=== PATIENT | female | born 1985 | race Caucasian/White ===

== ENCOUNTER 2017-05-01 10:41 | Emergency (ER) | payer OTHER ==
[2017-05-01] MEDS ORDERED: Ketorolac Tromethamine 30 MG/ML VIAL ONE (13:00)
== END 2017-05-01 13:22 | disposition home or self-care (01) ==
LOC: ERS 10:41
DX: H65.91 Unspecified nonsuppurative otitis media, right ear (principal); E28.2 Polycystic ovarian syndrome; E03.9 Hypothyroidism, unspecified; E66.9 Obesity, unspecified; F32.9 Major depressive disorder, single episode, unspecified
CPT/HCPCS: 81025; 96372; J1885

== ENCOUNTER 2018-01-13 11:52 | Emergency (ER) | payer MEDICAID, OTHER ==
--- NOTE | 2018-01-13 12:55 | RAD ---
CHEST TWO VIEWS: History: Cough. Comparison: 07-30-16 FINDINGS: Lungs are clear. NO pneumothorax or effusion. Cardiac silhouette and mediastinal contours within norm al limits. IMPRESSION: No acute intrathoracic abnormalities. No significant change. POS: [facility]
== END 2018-01-13 12:51 | disposition home or self-care (01) ==
LOC: ERS 11:52
DX: J20.9 Acute bronchitis, unspecified (principal); J31.0 Chronic rhinitis; E66.9 Obesity, unspecified; E03.9 Hypothyroidism, unspecified; F32.9 Major depressive disorder, single episode, unspecified; Z79.899 Other long term (current) drug therapy
CPT/HCPCS: 71046

== ENCOUNTER 2018-06-29 11:14 | Emergency (ER) | payer MEDICAID ==
[2018-06-29 11:54] LABS: Bilirubin Negative (Negative); Blood, Urine Negative (Negative); Clarity CLEAR (Clear); Glucose, Urine (Dipstick) Negative (Negative); Leukocyte Negative (Negative); Nitrite Negative (Negative); Protein, Urine (Dipstick) Negative (Neg-Trace); Specific Gravity, Urine 1.017 (1.002-1.036)
[2018-06-29 12:14] LABS: #Basophils 0.1 thou/uL (0.0-0.2); #Eosinphils 0.2 thou/uL (0.0-0.7); #Lymphocytes 4.2 thou/uL (1.20-3.40); #Monocytes 0.7 thou/uL (0.11-0.59); #Neutrophils 6.2 thou/uL (1.40-6.50); %Basophils 0.8 % (0.0-1.0); %Eosinophils 2.1 % (0.0-10.0); %Lymphocytes 36.7 % (21.0-51.0); %Monocytes 5.8 % (0.0-10.0); %Neutrophils 54.6 % (42.0-75.0); Hemoglobin 13.1 g/dL (12.0-16.0); Mean Corpuscular HGB CONC 34.2 g/dL (32.0-36.0); Mean Corpuscular Volume 81.9 fL (78.0-98.0); Mean Platelet Volume 7.2 fL (7.4-10.4); Platelet Count 405 thou/uL (130-400); RBC Distribution Width 12.9 % (11.5-14.5); White Blood Cell (WBC) Count 11.3 thou/uL (4.8-10.8)
[2018-06-29 12:17] LABS: Pregnancy Test - Urine (BHCG) Negative (Negative); Pregu Control Background? CLEAR/WHITE (CLR/WHITE); Pregu Control Bar Appear? YES (CONTROL BAR); Specific Gravity 1.017 (1.002-1.036)
[2018-06-29 12:48] LABS: ALT (SGPT) 71 U/L (8-55); AST (SGOT) 79 U/L (5-34); Albumin 3.9 g/dL (3.5-5.0); Alkaline Phosphatase 90 U/L (40-150); Anion Gap 11 mmol/L (10-20); BUN (Urea Nitrogen) 7 mg/dL (7.0-18.7); Bilirubin, Total 0.4 mg/dL (0.2-1.2); Calc. Creatinine Clearance 0 mL/min (70-130); Calcium 9.2 mg/dL (7.8-10.44); Carbon Dioxide 25 mmol/L (22-29); Estimated GFR-MDRD Greater than 90; Globulin 3.2 g/dL (2.4-3.5); Glucose 140 mg/dL (70-105); Protein, Total 7.1 g/dL (6.0-8.3)
[2018-06-29 12:51] LABS: Chloride 105 mmol/L (98-107); Potassium 3.4 mmol/L (3.5-5.1); Sodium 138 mmol/L (136-145)
--- NOTE | 2018-06-29 13:41 | CT ---
CT ABDOMEN AND PELVIS NONCONTRAST: 06/29/2018 HISTORY: Constant left-sided flank pain for five days. COMPARISON: None available. FINDINGS: The lung bases are clear. The liver is enlarged in craniocaudal dimensions, measuring 24.3 cm, with the spleen also enlarged in craniocaudal dimensions, measuring 14.4 cm. There are gas densities within the gallbladder, likely related to gallbladder calculi. There are punctate, approximately 2 mm calculi seen within the superior pole of each kidney, with at least two nonobstructing superior pole renal calculi seen bilaterally. No ureteral calculus is prese nt, and there is no evidence of hydronephrosis. The urinary bladder is incompletely distended but is otherwise grossly normal in appearance. The pancreas, bilateral adrenal glands, and uterus demonstrate a normal CT appearance for the patient 's age. Low density structures are seen within the left adnexal region, likely related to either dom inant left ovarian follicles or cysts. The appendix is visualized and normal in caliber. No free fluid, fluid collection, or lymphadenopathy is seen on this nonenhanced CT scan exam. The osseous structures appear to be within normal limits. IMPRESSION: 1. Punctate, nonobstructing, superior pole, bilateral renal calculi. No ureteral calculus is presen t, and there is no hydronephrosis. 2. Cholelithiasis. 3. Enlargement of the liver and spleen in craniocaudal dimensions. 4. Dominant left ovarian follicles versus cysts. There is a small follicle/cyst also present in the right ovary. 5. No CT evidence of appendicitis. 6. Minimal colonic diverticulosis. POS: [facility]
== END 2018-06-29 13:52 | disposition home or self-care (01) ==
LOC: ERS 11:14
DX: R10.9 Unspecified abdominal pain (principal); R79.89 Other specified abnormal findings of blood chemistry; E03.9 Hypothyroidism, unspecified; E66.9 Obesity, unspecified; F32.9 Major depressive disorder, single episode, unspecified; Z79.899 Other long term (current) drug therapy
CPT/HCPCS: 36415; 74176; 80053; 81003; 81025; 85025; 96372

== ENCOUNTER 2019-09-25 10:01 | Emergency (ER) | payer OTHER ==
--- NOTE | 2019-09-25 11:04 | RAD ---
FRONTAL RADIOGRAPH CHEST: Date: 09/25/2019 COMPARISON: 01/13/2018. HISTORY: Dyspnea. FINDINGS: Lungs are clear. Heart and mediastinal contours appear grossly unremarkable. IMPRESSION: No acute findings. POS: [facility]
== END 2019-09-25 11:08 | disposition home or self-care (01) ==
LOC: ERS 10:01
DX: J45.909 Unspecified asthma, uncomplicated (principal); E03.9 Hypothyroidism, unspecified; E66.9 Obesity, unspecified; Z79.899 Other long term (current) drug therapy
CPT/HCPCS: 71045; 94640; J7620

== ENCOUNTER 2019-10-08 20:53 | Emergency (ER) | payer OTHER ==
[~2019-10-08 20:53] MED LIST: Iopamidol-370 76% 500 ML 1 ML ONE
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
[2019-10-08 21:30] LABS: #Eosinphils 0.2 thou/uL (0.0-0.7); #Lymphocytes 5.5 thou/uL (1.20-3.40); #Monocytes 1.3 thou/uL (0.11-0.59); #Neutrophils 12.6 thou/uL (1.40-6.50); %Basophils 0.2 % (0.0-1.0); %Eosinophils 1.2 % (0.0-10.0); %Lymphocytes 27.9 % (21.0-51.0); %Monocytes 6.4 % (0.0-10.0); %Neutrophils 64.2 % (42.0-75.0); Hemoglobin 14.4 g/dL (12.0-16.0); Mean Corpuscular HGB CONC 32.6 g/dL (32.0-36.0); Mean Corpuscular Hemoglobin 27.3 pg (27.0-31.0); Mean Corpuscular Volume 83.6 fL (78.0-98.0); Mean Platelet Volume 7.4 fL (7.4-10.4); Platelet Count 450 thou/uL (130-400); RBC Distribution Width 12.8 % (11.5-14.5); Red Blood Cell (RBC) Count 5.27 mill/uL (4.20-5.40); White Blood Cell (WBC) Count 19.5 thou/uL (4.8-10.8)
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
[2019-10-08 21:38] LABS: ALT (SGPT) 35 U/L (8-55); AST (SGOT) 30 U/L (5-34); Albumin 4.3 g/dL (3.5-5.0); Alcohol Less than 10 mg/dL (Less than 10); Alkaline Phosphatase 75 U/L (40-110); Anion Gap 19 mmol/L (10-20); BUN (Urea Nitrogen) 7 mg/dL (7.0-18.7); Bilirubin, Total 0.3 mg/dL (0.2-1.2); Calc. Creatinine Clearance 0 mL/min (70-130); Calcium 9.5 mg/dL (7.8-10.44); Carbon Dioxide 18 mmol/L (22-29); Chloride 108 mmol/L (98-107); Estimated GFR-MDRD Greater than 90; Globulin 3.5 g/dL (2.4-3.5); Glucose 93 mg/dL (70-105); Potassium 3.8 mmol/L (3.5-5.1); Protein, Total 7.8 g/dL (6.0-8.3); Sodium 141 mmol/L (136-145)
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
[2019-10-08 21:57] LABS: Troponin I Less than 0.010 ng/mL (< 0.028)
[2019-10-08] MEDS ORDERED: HYDROcodone/Acetaminophen 5/325 mg Tablet ONE (22:28)
[2019-10-08] MEDS ORDERED: Ketorolac Tromethamine 30 MG/ML VIAL ONE (22:29)
--- NOTE | 2019-10-12 14:18 | EKG ---
Test Reason : ER Blood Pressure : / mmHG Vent. Rate : 097 BPM Atrial Rate : 097 BPM P-R Int : 166 ms QRS Dur : 076 ms QT Int : 348 ms P-R-T Axes : 039 -27 062 degrees QTc Int : 441 ms Normal sinus rhythm Normal ECG Confirmed by MAYRA ALVAREZ DO ([id number]), editor dictionary PERNELL SANCHEZ ([id number]) on 10/12/2019 2:18:15 PM Referred By: Confirmed By:MAYRA ALVAREZ DO
== END 2019-10-08 22:45 | disposition home or self-care (01) ==
LOC: ERS 20:53
DX: S00.81XA Abrasion of other part of head, initial encounter (principal); R07.9 Chest pain, unspecified; M54.6 Pain in thoracic spine; F41.9 Anxiety disorder, unspecified; E03.9 Hypothyroidism, unspecified; J45.909 Unspecified asthma, uncomplicated; V47.5XXA Car driver injured in collision with fixed or stationary object in traffic accident, initial encounter
CPT/HCPCS: 70450; 71260; 72125; 74177; 80053; 80307; 84484; 85025; 93005; 96374; G0390; J1885; Q9967

== ENCOUNTER 2019-12-12 12:44 | Outpatient (CLI) | payer OTHER ==
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
== END 2019-12-12 12:45 | disposition home or self-care (01) ==
LOC: BICULT 12:44
PROVIDERS: ATTEND Family Medicine
DX: D17.1 Benign lipomatous neoplasm of skin and subcutaneous tissue of trunk (principal)
CPT/HCPCS: 76999

== ENCOUNTER 2020-05-20 16:05 | Emergency (ER) | payer OTHER ==
[2020-05-20] MEDS ORDERED: Fluorescein Opthalmic Strip ONE ×2 (17:27)
[2020-05-20] MEDS ORDERED: Proparacaine 0.5% Opth 15 ML BOT ONE (17:28)
== END 2020-05-20 18:06 | disposition home or self-care (01) ==
LOC: ERS 16:05
DX: T20.60XA Corrosion of second degree of head, face, and neck, unspecified site, initial encounter (principal); T22.612A Corrosion of second degree of left forearm, initial encounter; T22.611A Corrosion of second degree of right forearm, initial encounter; J45.909 Unspecified asthma, uncomplicated; E03.9 Hypothyroidism, unspecified; E66.9 Obesity, unspecified; X19.XXXA Contact with other heat and hot substances, initial encounter; Y99.0 Civilian activity done for income or pay
CPT/HCPCS: 99283

== ENCOUNTER 2020-08-21 16:19 | Emergency (ER) | payer OTHER | END 2020-08-21 18:31 | disposition left against medical advice (07) | LOC: ERS 16:19 | DX: Z53.21 Procedure and treatment not carried out due to patient leaving prior to being seen by health care provider (principal) ==

== ENCOUNTER 2020-10-02 07:46 | Outpatient (CLI) | payer OTHER | END 2020-10-02 07:47 | disposition home or self-care (01) | LOC: BICULT 07:46 | PROVIDERS: ATTEND Family Medicine | DX: N93.9 Abnormal uterine and vaginal bleeding, unspecified (principal) | CPT/HCPCS: 76856 ==

== ENCOUNTER 2020-12-08 09:07 | Emergency (ER) | payer OTHER | END 2020-12-08 10:02 | disposition home or self-care (01) | LOC: ERS 09:07 | DX: J45.901 Unspecified asthma with (acute) exacerbation (principal); E03.9 Hypothyroidism, unspecified; Z79.84 Long term (current) use of oral hypoglycemic drugs; Z79.899 Other long term (current) drug therapy | CPT/HCPCS: 71045 ==

== ENCOUNTER 2021-01-31 15:15 | Emergency (ER) | payer OTHER ==
[2021-01-31 15:49] LABS: #Eosinphils 0.3 thou/uL (0.0-0.7); #Lymphocytes 3.6 thou/uL (1.20-3.40); #Monocytes 1.2 thou/uL (0.11-0.59); %Basophils 0.3 % (0.0-1.0); %Eosinophils 1.7 % (0.0-10.0); %Lymphocytes 23.8 % (21.0-51.0); %Monocytes 7.8 % (0.0-10.0); %Neutrophils 66.4 % (42.0-75.0); Hemoglobin 13.1 g/dL (12.0-16.0); Mean Corpuscular HGB CONC 34.4 g/dL (32.0-36.0); Mean Corpuscular Hemoglobin 27.7 pg (27.0-31.0); Mean Corpuscular Volume 80.5 fL (78.0-98.0); Mean Platelet Volume 7.3 fL (7.4-10.4); Platelet Count 494 thou/uL (130-400); RBC Distribution Width 13.2 % (11.5-14.5); Red Blood Cell (RBC) Count 4.72 mill/uL (4.20-5.40); White Blood Cell (WBC) Count 15.1 thou/uL (4.8-10.8)
[2021-01-31 16:11] LABS: ALT (SGPT) 26 U/L (8-55); AST (SGOT) 25 U/L (5-34); Albumin 4.3 g/dL (3.5-5.0); Alkaline Phosphatase 72 U/L (40-110); Anion Gap 13 mmol/L (10-20); BUN (Urea Nitrogen) 5 mg/dL (7.0-18.7); Bilirubin, Total 0.4 mg/dL (0.2-1.2); Calc. Creatinine Clearance 0 mL/min (70-130); Calcium 9.7 mg/dL (7.8-10.44); Carbon Dioxide 24 mmol/L (22-29); Chloride 107 mmol/L (98-107); Globulin 3.2 g/dL (2.4-3.5); Glucose 112 mg/dL (70-105); Potassium 3.7 mmol/L (3.5-5.1); Protein, Total 7.5 g/dL (6.0-8.3); Sodium 140 mmol/L (136-145)
[2021-01-31] MEDS ORDERED: predniSONE 20 MG TAB ONE (17:35)
[2021-01-31 19:35] LABS: Troponin I Less than 0.010 ng/mL (< 0.028)
[2021-02-01 09:03] LABS: SARS-CoV-2 PCR by NAA Not Detected (NotDetected)
== END 2021-01-31 20:09 | disposition home or self-care (01) ==
LOC: ERS 15:15
DX: J45.901 Unspecified asthma with (acute) exacerbation (principal); E03.9 Hypothyroidism, unspecified; Z20.822 Contact with and (suspected) exposure to COVID-19; Z79.899 Other long term (current) drug therapy
CPT/HCPCS: 36415; 71046; 80053; 84484; 85025; 93005; J7512; J7620; U0003; U0005

== ENCOUNTER 2021-08-01 16:05 | Emergency (ER) | payer OTHER | END 2021-08-01 16:46 | disposition home or self-care (01) | LOC: ERS 16:05 | DX: L29.9 Pruritus, unspecified (principal); J45.909 Unspecified asthma, uncomplicated; E03.9 Hypothyroidism, unspecified; Z79.899 Other long term (current) drug therapy; Z79.51 Long term (current) use of inhaled steroids | CPT/HCPCS: 99281 ==

== ENCOUNTER 2021-08-18 16:04 | Emergency (ER) | payer OTHER | END 2021-08-18 18:13 | disposition home or self-care (01) | LOC: ERS 16:04 | DX: L23.9 Allergic contact dermatitis, unspecified cause (principal); E03.9 Hypothyroidism, unspecified | CPT/HCPCS: 99283 ==